=== PATIENT | male | born 1955 | race Hispanic/Latino ===

== ENCOUNTER 2019-03-14 09:18 | Inpatient (IN) | payer MEDICARE ==
[~2019-03-14] VITALS: Ht 172.7 cm; Wt 77.6 kg
[~2019-03-14 09:18] MED LIST: ASPI81TA40 PO; ATOR40TA69 PO; BUSP5TAB3 PO; CARV12.511 PO; GLIP5TAB11 PO; LISI40TA4 PO; LORA0.5T2 PO; METR500T PO; NITR0.4T SL; OMEP40CA13 PO
[2019-03-14 09:52] LABS: BASOPHILS % (AUTO) 0.8 % (0.0-5.0); LYMPHOCYTES % (AUTO) 5.2 % (21.0-51.0); MEAN CORPUSCULAR HGB CONC 33.1 g/dL (32.0-36.0); MEAN CORPUSCULAR VOLUME 90.7 fL (79-99); MONOCYTES % (AUTO) 5.5 % (3.0-13.0); NEUTROPHILS % (AUTO) 86.5 % (40.0-77.0); PLATELET COUNT (AUTO) 108 K/uL (130-400); RED BLOOD CELL COUNT(AUTO) 3.64 MIL/uL (4.50-6.20); RED CELL DISTRIBUTION WIDTH 15.1 % (11.0-15.5); WHITE BLOOD COUNT (AUTO) 6.9 K/uL (4.8-10.8)
[2019-03-14 10:08] LABS: PLATELET MORPHOLOGY COMMENT SLIGHTLY DECREASED
[2019-03-14 10:14] LABS: CREATININE 6.5 mg/dL (0.5-1.5); POTASSIUM 4.2 mmol/L (3.5-5.1)
[2019-03-14 10:21] LABS: ALBUMIN 3.8 g/dL (3.5-5.0); BILIRUBIN,TOTAL 0.7 mg/dL (0.2-1.0); TOTAL PROTEIN, SERUM 7.5 g/dL (6.0-8.3)
[2019-03-14] MEDS ORDERED: DEXAMETHASONE SOD PHOSPHATE 10MG/ML 1ML VIAL ONE (10:40)
[2019-03-14] MEDS ORDERED: NITROGLYCERIN 1GM/1 INCH PACKET TD ONE (11:04)
[2019-03-14] MEDS ORDERED: ONDANSETRON HCL 4 MG/2 ML VIAL ONE (11:35)
[2019-03-14] MEDS ORDERED: CEFTRIAXONE SODIUM 1 GM ONE (11:46)
[2019-03-14] MEDS ORDERED: FAMOTIDINE/PF 20 MG/2 ML VIAL IV ONE (11:47)
[2019-03-14] MEDS ORDERED: SODIUM CHLORIDE 0.9% 100 ML IV ONE (11:48)
[2019-03-14] MEDS ORDERED: IPRATROPIUM/ALBUTEROL SULFATE 3 ML SOLUTION IH ONE (11:48)
[2019-03-14] MEDS ORDERED: AZITHROMYCIN 250 MG TABLET PO ONE (11:58)
[2019-03-14 13:45] VITALS: BP 215/101
[2019-03-14] MEDS ORDERED: CLONIDINE HCL 0.2 MG TABLET PO ONE (14:12)
[2019-03-14] MEDS ORDERED: CLONIDINE HCL 0.2 MG TABLET PO SCH ×2 (14:15→19:15)
--- NOTE | 2019-03-14 14:16 | NUR ---
Received telephone order from Dr. Bennett for clonidine 0.2 mg dose, once unscheduled for BP of 215/101, HR 82. Patient in no signs of distress, AAOx3, bed low and locked, call dyer within reach. Currently receiving dialysis. Report provided to unit nurse Donnell Hussein RN for transfer of care.
[2019-03-14] MEDS ORDERED: NITROGLYCERIN 0.4 MG SL TAB SL SCH (14:30)
[2019-03-14] MEDS ORDERED: DEXTROSE 50%-WATER 50 ML DISP.SYRIN IV PRN (15:00)
[2019-03-14] MEDS ORDERED: GLUCAGON 1MG KIT 1 MG ML IM PRN (15:00)
[2019-03-14] MEDS ORDERED: SODIUM CHLORIDE 0.9% 10 ML VIAL IVP PRN (15:00)
[2019-03-14] MEDS ORDERED: ISOS30TA6 PO (15:41)
[2019-03-14 16:00] VITALS: BP 201/96
[2019-03-14 16:49] LABS: TROPONIN I 0.1 ng/mL (0.00-0.06)
[2019-03-14] MEDS: INSULIN R NPO SSI SQ SCH (18:00)
--- NOTE | 2019-03-14 18:00 | NUR ---
AV GRAFT WITH POS [employer] .DRESSING CLEAN AND DRY
[2019-03-14] MEDS: ENOXAPARIN SODIUM 30 MG/0.3 ML SQ SCH ×2 (18:47→19:53)
[2019-03-14] MEDS: ISOSORBIDE MONO 30MG TAB SR PO SCH (18:48)
[2019-03-14 18:55] VITALS: BP 197/84
[2019-03-14] MEDS: BUSPIRONE HCL 5 MG TABLET PO SCH (19:55)
[2019-03-14 20:00] VITALS: BP 187/90
[2019-03-14 22:07] LABS: TROPONIN I 0.11 ng/mL (0.00-0.06)
[2019-03-15] VITALS (7 sets, daily range): BP systolic 147–191; BP diastolic 66–83
[2019-03-15] MEDS: HYDRALAZINE HCL 20 MG/ML VIAL IV PRN (00:02)
[2019-03-15] MEDS: INSULIN R NPO SSI SQ SCH ×4 (05:52→18:43)
[2019-03-15] MEDS: PANTOPRAZOLE SODIUM 40 MG TABLET.DR PO SCH (08:50)
[2019-03-15] MEDS: GLIPIZIDE 5 MG TABLET PO SCH (08:50)
[2019-03-15] MEDS: ASPIRIN 81 MG EC TAB PO SCH (08:50)
[2019-03-15] MEDS: AZITHROMYCIN 250 MG TABLET PO SCH (08:51)
[2019-03-15] MEDS: CEFTRIAXONE SODIUM 1 GM IVP SCH (08:51)
[2019-03-15] MEDS: ISOSORBIDE MONO 30MG TAB SR PO SCH (08:51)
[2019-03-15] MEDS: ATORVASTATIN CALCIUM 40 MG TABLET PO SCH (08:51)
[2019-03-15] MEDS: BUSPIRONE HCL 5 MG TABLET PO SCH ×2 (08:51→20:46)
[2019-03-15] MEDS: LISINOPRIL 40 MG TABLET PO SCH (08:51)
[2019-03-15] MEDS: FAMOTIDINE/PF 20 MG/2 ML VIAL IV SCH ×2 (08:52→08:54)
[2019-03-15] MEDS: CARVEDILOL 12.5 MG TABLET PO SCH ×3 (08:52→20:46)
[2019-03-15] MEDS: ENOXAPARIN SODIUM 30 MG/0.3 ML SQ SCH (08:53)
[2019-03-15] MEDS ORDERED: AMLODIPINE BESYLATE 5 MG TAB PO SCH (10:15)
[2019-03-15] MEDS ORDERED: REGADENOSON 0.4 MG/5 ML PF SYG IVP SCH (11:45)
[2019-03-15] MEDS: INSULIN HUMULIN R 100 UNIT/ML 3ML SQ SCH (20:49)
[2019-03-16] VITALS (7 sets, daily range): BP systolic 159–196; BP diastolic 75–91
[2019-03-16 05:52] LABS: BASOPHILS % (AUTO) 0.5 % (0.0-5.0); EOSINOPHILS % (AUTO) 0.7 % (0.0-8.0); LYMPHOCYTES % (AUTO) 13.5 % (21.0-51.0); MEAN CORPUSCULAR HEMOGLOBIN 30.9 pg (27.0-33.0); MEAN CORPUSCULAR HGB CONC 33.6 g/dL (32.0-36.0); MONOCYTES % (AUTO) 7.7 % (3.0-13.0); NEUTROPHILS % (AUTO) 77.6 % (40.0-77.0); NUCLEATED RED BLOOD CELLS 0.1 % (0.0-0.19); PLATELET COUNT (AUTO) 126 K/uL (130-400); RED BLOOD CELL COUNT(AUTO) 3.37 MIL/uL (4.50-6.20); RED CELL DISTRIBUTION WIDTH 15.6 % (11.0-15.5); WHITE BLOOD COUNT (AUTO) 6.8 K/uL (4.8-10.8)
[2019-03-16 06:02] LABS: POTASSIUM 4.2 mmol/L (3.5-5.1)
[2019-03-16 06:09] LABS: CREATININE 8.3 mg/dL (0.5-1.5)
[2019-03-16] MEDS: INSULIN HUMULIN R 100 UNIT/ML 3ML SQ SCH ×4 (06:16→21:00)
[2019-03-16] MEDS: ISOSORBIDE MONO 30MG TAB SR PO SCH (09:00)
[2019-03-16] MEDS: LISINOPRIL 40 MG TABLET PO SCH (09:00)
[2019-03-16] MEDS: AMLODIPINE BESYLATE 5 MG TAB PO SCH (09:00)
[2019-03-16] MEDS ORDERED: AMLODIPINE BESYLATE 5 MG TAB PO SCH (09:00)
[2019-03-16] MEDS: FAMOTIDINE/PF 20 MG/2 ML VIAL IV SCH (09:58)
[2019-03-16] MEDS: PANTOPRAZOLE SODIUM 40 MG TABLET.DR PO SCH (09:58)
[2019-03-16] MEDS: AZITHROMYCIN 250 MG TABLET PO SCH (09:59)
[2019-03-16] MEDS: ASPIRIN 81 MG EC TAB PO SCH (09:59)
[2019-03-16] MEDS: GLIPIZIDE 5 MG TABLET PO SCH (09:59)
[2019-03-16] MEDS: ATORVASTATIN CALCIUM 40 MG TABLET PO SCH (09:59)
[2019-03-16] MEDS: CARVEDILOL 12.5 MG TABLET PO SCH ×2 (09:59→20:52)
[2019-03-16] MEDS: BUSPIRONE HCL 5 MG TABLET PO SCH ×2 (10:00→20:45)
[2019-03-16] MEDS: ENOXAPARIN SODIUM 30 MG/0.3 ML SQ SCH (10:00)
[2019-03-16] MEDS: CEFTRIAXONE SODIUM 1 GM IVP SCH (10:00)
--- NOTE | 2019-03-16 10:03 | NUR ---
PT IN DIALYSIS AT THIS TIME, ALL BP MEDS HELD.
[2019-03-16] MEDS: HYDRALAZINE HCL 20 MG/ML VIAL IV PRN ×2 (12:38→20:45)
[2019-03-17 03:18] VITALS: BP 150/80
[2019-03-17 05:50] LABS: CREATININE 6.7 mg/dL (0.5-1.5)
[2019-03-17 05:55] LABS: HEMATOCRIT 33.4 % (42-54); MEAN CORPUSCULAR HEMOGLOBIN 30.2 pg (27.0-33.0); MEAN CORPUSCULAR HGB CONC 33.2 g/dL (32.0-36.0); NUCLEATED RED BLOOD CELLS 0.1 % (0.0-0.19); PLATELET COUNT (AUTO) 148 K/uL (130-400); RED BLOOD CELL COUNT(AUTO) 3.67 MIL/uL (4.50-6.20); RED CELL DISTRIBUTION WIDTH 15.6 % (11.0-15.5); WHITE BLOOD COUNT (AUTO) 5.1 K/uL (4.8-10.8)
[2019-03-17 06:10] LABS: HEPATITIS A ANTIBODY IGM Negative (Negative); HEPATITIS B CORE IGM Negative (Negative); HEPATITIS Bs ANTIGEN SCREEN P Negative (Negative)
[2019-03-17 07:30] VITALS: BP 186/81
[2019-03-17] MEDS: INSULIN HUMULIN R 100 UNIT/ML 3ML SQ SCH ×2 (07:30→11:29)
--- NOTE | 2019-03-17 09:30 | NUR ---
CM NOTE PTS CHART REVIEWED. NOTES FROM LAST RECENT ADMIT STATE PT LIVES W SPOUSE, IS INDP OF [facility], SPOUSE ASSISTS NEED ,USES A CANE ON OCCASION, DCP IS HOME, CM TO FOLLOW PRN IF TRIGGERS RECD. DETAILED CM ASSESSMENT DEFERRED Addendum: 03/18/19 at 1930 by TIFFANY MCLEAN RN CM Amended: Links added.
[2019-03-17] MEDS: PANTOPRAZOLE SODIUM 40 MG TABLET.DR PO SCH (10:04)
[2019-03-17] MEDS: ENOXAPARIN SODIUM 30 MG/0.3 ML SQ SCH (10:04)
[2019-03-17 10:05] VITALS: BP 186/81
[2019-03-17] MEDS: AZITHROMYCIN 250 MG TABLET PO SCH (10:05)
[2019-03-17] MEDS: FAMOTIDINE/PF 20 MG/2 ML VIAL IV SCH (10:05)
[2019-03-17] MEDS: BUSPIRONE HCL 5 MG TABLET PO SCH (10:05)
[2019-03-17] MEDS: LISINOPRIL 40 MG TABLET PO SCH (10:05)
[2019-03-17] MEDS: CARVEDILOL 12.5 MG TABLET PO SCH (10:05)
[2019-03-17] MEDS: ATORVASTATIN CALCIUM 40 MG TABLET PO SCH (10:05)
[2019-03-17] MEDS: ISOSORBIDE MONO 30MG TAB SR PO SCH (10:06)
[2019-03-17] MEDS: ASPIRIN 81 MG EC TAB PO SCH (10:06)
[2019-03-17] MEDS: CEFTRIAXONE SODIUM 1 GM IVP SCH (10:06)
[2019-03-17] MEDS: AMLODIPINE BESYLATE 5 MG TAB PO SCH (10:06)
[2019-03-17] MEDS: GLIPIZIDE 5 MG TABLET PO SCH (10:06)
[2019-03-17] MEDS ORDERED: DOXY100C2 PO (11:14)
--- NOTE | 2019-03-17 16:12 | NUR ---
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 PIV taken out without complication.
== END 2019-03-17 12:35 | disposition home or self-care (01) | DRG 193 ==
LOC: EDH 09:18 → EDHIP 11:15 → 3BH 13:49
PROVIDERS: ADMIT Family Medicine; ATTEND Family Medicine
PROC: 5A1D70Z Performance of Urinary Filtration, Intermittent, Less than 6 Hours Per Day (ICD-10-PCS; principal; 2019-03-14)
PROC: 5A1D70Z Performance of Urinary Filtration, Intermittent, Less than 6 Hours Per Day (ICD-10-PCS; 2019-03-16)
DX: J18.9 Pneumonia, unspecified organism (principal); N18.6 End stage renal disease; I12.0 Hypertensive chronic kidney disease with stage 5 chronic kidney disease or end stage renal disease; E11.22 Type 2 diabetes mellitus with diabetic chronic kidney disease; E11.51 Type 2 diabetes mellitus with diabetic peripheral angiopathy without gangrene; I25.10 Atherosclerotic heart disease of native coronary artery without angina pectoris; D69.6 Thrombocytopenia, unspecified; D64.9 Anemia, unspecified; E78.5 Hyperlipidemia, unspecified; Z99.2 Dependence on renal dialysis; Z95.5 Presence of coronary angioplasty implant and graft; Z79.4 Long term (current) use of insulin; Z82.3 Family history of stroke; Z82.49 Family history of ischemic heart disease and other diseases of the circulatory system; Z83.3 Family history of diabetes mellitus; Z95.820 Peripheral vascular angioplasty status with implants and grafts; R07.89 Other chest pain
CPT/HCPCS: 36415; 71046; 78452; 80048; 80053; 80074; 82550; 82948; 83874; 83880; 84484; 85025; 85027; 87040; 87804; 87880; 90935; 93005; 93017; 94640; 96374; A9500; G0378; J0360; J0696; J1100; J1650; J1815; J2405; J2785; J3490

== ENCOUNTER → 2020-02-09 | Outpatient (CLI) | payer MEDICARE ==
[~2020-02-09] MED LIST changes: +DOXY100C2 PO; +ISOS30TA6 PO
== END | disposition home or self-care (01) ==
LOC: SHCH 14:32
PROVIDERS: ATTEND Internal Medicine Cardiovascular Disease
DX: Z01.810 Encounter for preprocedural cardiovascular examination (principal); E78.5 Hyperlipidemia, unspecified; E11.9 Type 2 diabetes mellitus without complications; I36.1 Nonrheumatic tricuspid (valve) insufficiency; R55 Syncope and collapse
CPT/HCPCS: 93306; 93356

== ENCOUNTER → 2020-06-02 | Outpatient (CLI) | payer OTHER ==
[~2020-06-02] VITALS: Ht 172.7 cm; Wt 78.0 kg
[~2020-06-02] MED LIST changes: -ISOS30TA6 PO; +ISOS30TA92 PO; -LISI40TA4 PO; +LISI40TA9 PO; +REGADENOSON 0.4 MG/5 ML PF SYG IVP SCH
== END | disposition home or self-care (01) ==
LOC: SHCH 08:46
PROVIDERS: ATTEND Internal Medicine Cardiovascular Disease
DX: N18.6 End stage renal disease (principal); Z01.810 Encounter for preprocedural cardiovascular examination; R07.9 Chest pain, unspecified; I10 Essential (primary) hypertension; E78.5 Hyperlipidemia, unspecified; Z01.818 Encounter for other preprocedural examination
CPT/HCPCS: 78452; 93017; 96374; A9500 ×2; J2785

== ENCOUNTER → 2020-07-19 | Outpatient (CLI) | payer OTHER ==
[~2020-07-19] VITALS: Ht 172.7 cm; Wt 79.4 kg
[~2020-07-19] MED LIST changes: +CARV25TA PO; +GLIP2.5T PO; +INSU100V12 SQ; -REGADENOSON 0.4 MG/5 ML PF SYG IVP SCH; +RIFA300C4 PO; +SODIUM CHLORIDE 0.9% 1000ML 1,000 ML IV SCH
[2020-07-19 13:12] LABS: BASOPHILS % (AUTO) 0.8 % (0.0-5.0); EOSINOPHILS % (AUTO) 4.7 % (0.0-8.0); HEMATOCRIT 36.5 % (42-54); LYMPHOCYTES % (AUTO) 19.9 % (21.0-51.0); MEAN CORPUSCULAR HEMOGLOBIN 28.2 pg (27.0-33.0); MONOCYTES % (AUTO) 8.9 % (3.0-13.0); NEUTROPHILS % (AUTO) 65.3 % (40.0-77.0); PLATELET COUNT (AUTO) 129 K/uL (130-400); RED BLOOD CELL COUNT(AUTO) 4.01 MIL/uL (4.50-6.20); RED CELL DISTRIBUTION WIDTH 14.4 % (11.0-15.5); WHITE BLOOD COUNT (AUTO) 4.7 K/uL (4.8-10.8)
[2020-07-19 13:24] LABS: INR 1.14 (0.85-1.15); PROTHROMBIN TIME 12.3 SEC (9.6-11.6)
[2020-07-19 13:25] LABS: PARTIAL THROMBOPLASTIN TIME 31.2 SEC (26.3-35.5); POTASSIUM 5.3 mmol/L (3.5-5.1)
[2020-07-19 13:32] LABS: CREATININE 8.2 mg/dL (0.5-1.5)
[2020-07-20 09:31] VITALS: BP 127/60
== END ==
LOC: DAH 10:00 → EDSTATUS 11:00
PROVIDERS: ATTEND Internal Medicine Cardiovascular Disease
DX: R06.00 Dyspnea, unspecified (principal); I51.7 Cardiomegaly; Z53.8 Procedure and treatment not carried out for other reasons; Z79.01 Long term (current) use of anticoagulants
CPT/HCPCS: 36415; 71045; 80048; 85025; 85610; 85730; 93005